=== PATIENT | female | born 1995 | race Two or more races ===

== ENCOUNTER 2018-08-27 11:00 | Emergency (ER) | payer SELFPAY ==
[~2018-08-27] VITALS: Ht 154.9 cm; Wt 68.0 kg
[2018-08-27 11:31] LABS: Urine WBC None Seen /hpf (0 - 5)
[2018-08-27 11:50] LABS: Urine Bacteria FEW /hpf (None Seen); Urine Blood Negative /uL (Negative); Urine Mucus FEW (None Seen); Urine Specific Gravity 1.028 (1.001-1.035)
[2018-08-27 11:51] VITALS: BP 120/73
== END 2018-08-27 13:30 | disposition home or self-care (01) ==
LOC: ER 11:00
DX: J02.9 Acute pharyngitis, unspecified (principal); R11.10 Vomiting, unspecified; J45.909 Unspecified asthma, uncomplicated
CPT/HCPCS: 81001; 81025